=== PATIENT | male | born 1985 | race Caucasian/White ===

== ENCOUNTER → 2021-02-24 | Emergency (ER) | payer MEDICAID ==
[~2021-02-24] MED LIST: METH4TAB81 PO; ketorolac trometh. 30mg/ml inj. IM ONE
[2021-02-24 22:00] VITALS: BP 158/115
== END | disposition home or self-care (01) ==
LOC: ER 21:58
DX: M54.31 Sciatica, right side (principal); F12.90 Cannabis use, unspecified, uncomplicated; Z72.89 Other problems related to lifestyle; Z98.890 Other specified postprocedural states; Z79.899 Other long term (current) drug therapy
CPT/HCPCS: 96372; 99283; J1885

== ENCOUNTER 2021-05-14 15:16 | Emergency (ER) | payer MEDICAID ==
[~2021-05-14] VITALS: Ht 182.9 cm; Wt 81.8 kg
[~2021-05-14 15:16] MED LIST changes: -ketorolac trometh. 30mg/ml inj. IM ONE
[2021-05-14] MEDS ORDERED: ketorolac trometh. 30mg/ml inj. IM ONE (16:10)
[2021-05-14] MEDS ORDERED: CefTRIAXone 1000mg IM Kit (w/lidocaine diluent) IM STA (16:10)
[2021-05-14] MEDS ORDERED: PENICILLIN G BENZATHINE 2,400,000 UNIT/4 ML SYRINGE IM STA (16:10)
[2021-05-14] MEDS ORDERED: azithromycin 250mg tablet PO ONE (16:10)
[2021-05-14] MEDS ORDERED: orphenadrine citrate 60mg/2ml inj. IM ONE (16:10)
[2021-05-14] MEDS ORDERED: ORPH100T2 PO (16:25)
[2021-05-14] MEDS ORDERED: DOXY100C76 PO (16:25)
[2021-05-14] MEDS ORDERED: IBUP-1984 PO (16:25)
[2021-05-14] MEDS ORDERED: HYDROcodone/acetaminophen 5mg/325mg tablet PO ONE (16:50)
[2021-05-14] MEDS ORDERED: ondansetron 4mg rapidly disintigrating tab PO ONE (17:10)
[2021-05-14] MEDS ORDERED: morphine 4 MG/ML inj SYRINge IM ONE (17:10)
[2021-05-14 17:46] VITALS: BP 130/87
== END 2021-05-14 17:52 | disposition home or self-care (01) ==
LOC: ER 15:17
DX: M54.41 Lumbago with sciatica, right side (principal); Z11.3 Encounter for screening for infections with a predominantly sexual mode of transmission; G89.29 Other chronic pain; F12.90 Cannabis use, unspecified, uncomplicated; Z72.89 Other problems related to lifestyle; Z79.2 Long term (current) use of antibiotics; Z79.899 Other long term (current) drug therapy; Z87.81 Personal history of (healed) traumatic fracture
CPT/HCPCS: 36415; 86592; 87491; 87591; 96372; 99284; J0561; J0696; J2270

== ENCOUNTER 2023-02-20 10:34 | Emergency (ER) | payer MEDICAID ==
[~2023-02-20] VITALS: Ht 182.9 cm; Wt 83.0 kg
[~2023-02-20 10:34] MED LIST changes: +ORPH100T4 PO
[2023-02-20 10:53] VITALS: RESP 16; TEMP 98.2
[2023-02-20 13:02] VITALS: BP 139/100; PULSE 49; O2SAT 100
[2023-02-20 13:03] LABS: BASOPHILS % (AUTO) 0.3 % (0-1); EOSINOPHILS % (AUTO) 0.6 % (0-6); MEAN PLATELET VOLUME 8.2 FL (7.4-10.4); NEUTROPHILS # (AUTO) 5.1 X10'3 (1.8-7.7); WHITE BLOOD COUNT 7.8 X10'3 (4.5-11.0)
[2023-02-20 13:05] LABS: HEMATOCRIT 48.8 % (42.0-52.0); HEMOGLOBIN 16.3 g/dl (14.0-17.9); LYMPHOCYTES % (AUTO) 26.2 % (21-51); MEAN CORPUSCULAR HEMOGLOBIN 29.4 PG (27.0-31.0); MEAN CORPUSCULAR HGB CONC 33.4 g/dL (33.0-36.5); MONOCYTES # (AUTO) 0.6 X10'3 (0-0.9); MONOCYTES % (AUTO) 7.6 % (2-12); NEUTROPHILS % (AUTO) 65.3 % (42-75); PLATELET COUNT 231 X10'3 (140-440); RED BLOOD COUNT 5.54 X10'6 (4.70-6.10); RED CELL DISTRIBUTION WIDTH 14.4 % (11.5-14.5)
[2023-02-20 13:10] LABS: BILIRUBIN,URINE NEGATIVE (Neg); CLARITY,URINE CLEAR (Clear); COLOR,URINE YELLOW (Yellow); GLUCOSE, URINE NEGATIVE (Neg); KETONES,URINE NEGATIVE (Neg); LEUKOCYTE ESTERASE ,URINE NEGATIVE (Neg); NITRITES, URINE NEGATIVE (Neg); OCCULT BLOOD,URINE NEGATIVE (Neg); PH,URINE 6.5 (4.8-8.0); PROTEIN,URINE NEGATIVE (Neg); UROBILINOGEN,URINE 0.2 E.U/dL (0.2-1.0)
[2023-02-20 13:18] LABS: ALANINE AMINOTRANSFERASE 40 U/L (12-78); ALBUMIN 4.1 G/DL (3.4-5.0); ALKALINE PHOSPHATASE 103 IU/L (46-116); ANION GAP 7 (8-16); ASPARTATE AMINO TRANSFERASE 26 U/L (10-37); BILIRUBIN,TOTAL 0.4 MG/DL (0.1-1.0); BLOOD UREA NITROGEN 11 MG/DL (7-18); BUN/CREATININE RATIO 12.8 (10.0-20.0); CALCIUM 9.1 MG/DL (8.5-10.1); CHLORIDE 102 MMOL/L (99-107); CREATININE 0.86 MG/DL (0.60-1.10); GLUCOSE 100 MG/DL (70-104); LIPASE 56 U/L (73-393); POTASSIUM 4.2 MMOL/L (3.5-5.1); SODIUM 138 MMOL/L (135-145); TOTAL CARBON DIOXIDE 29.5 MMOL/L (24-32); TOTAL PROTEIN 8.2 G/DL (6.4-8.2); eCRCL 128 ML/MIN; eGFR > 90 ML/MIN
[2023-02-20 13:21] LABS: UA COLLECTION TYPE CLN CATCH MIDSTREAM
== END 2023-02-20 16:49 | disposition left against medical advice (07) ==
LOC: ER 10:35
DX: R10.30 Lower abdominal pain, unspecified (principal); Z53.21 Procedure and treatment not carried out due to patient leaving prior to being seen by health care provider
CPT/HCPCS: 36415; 80053; 81003; 83690; 85025; 99281

== ENCOUNTER 2024-08-10 14:27 | Emergency (ER) | payer MEDICAID ==
[~2024-08-10] VITALS: Ht 182.9 cm; Wt 93.2 kg
[2024-08-10 14:36] VITALS: TEMP 97.8
[2024-08-10] MEDS: ketorolac trometh 30MG/ML vial 30 MG/ML VIAL IM STA (15:15)
[2024-08-10 15:24] VITALS: BP 156/98; PULSE 76; RESP 16; O2SAT 97
== END 2024-08-10 15:30 | disposition home or self-care (01) ==
LOC: ER 14:28
DX: G89.29 Other chronic pain (principal); M54.41 Lumbago with sciatica, right side; M54.9 Dorsalgia, unspecified; F12.90 Cannabis use, unspecified, uncomplicated; Z98.890 Other specified postprocedural states; Z72.89 Other problems related to lifestyle
CPT/HCPCS: 96372; 99283; J1885